=== PATIENT | male | born 1995 | race Caucasian/White ===

== ENCOUNTER 2019-12-02 13:11 | Observation (INO) ==
[2019-12-02] MEDS ORDERED: HYDROmorphone 2 MG/1 ML VIAL ONE ×2 (13:18→16:51)
[2019-12-02] MEDS ORDERED: ONDANSETRON 4 MG/2 ML VIAL ONE ×3 (13:18→16:51)
[2019-12-02] MEDS ORDERED: ceFAZolin 1,000 MG VIAL ONE ×2 (13:19→15:51)
[2019-12-02] MEDS ORDERED: ONDANSETRON 4 MG/2 ML VIAL IV STA (13:25)
[2019-12-02] MEDS ORDERED: HYDROmorphone 2 MG/1 ML VIAL IV STA (13:25)
[2019-12-02] MEDS ORDERED: DIPH/TET/ACEL PERT BOOSTER VACCINE 0.5 ML VIAL IM ONE ×2 (13:25→13:26)
[2019-12-02] MEDS ORDERED: LIDOCAINE 1%/EPI INJ 20 ML VIAL INFILTRAT STA (13:25)
[2019-12-02] MEDS ORDERED: SODIUM CHLORIDE 0.9% 1,000 ML IV STA ×2 (13:27→13:28)
[2019-12-02] MEDS ORDERED: KETOROLAC 15 MG/1 ML VIAL IV PRN (13:35)
[2019-12-02] MEDS ORDERED: BISACODYL 5 MG TABLET PO PRN (13:35)
[2019-12-02] MEDS ORDERED: ACETAMINOPHEN 325 MG TABLET PO PRN (13:35)
[2019-12-02] MEDS ORDERED: ONDANSETRON 4 MG/2 ML VIAL IV PRN ×2 (13:35→16:51)
[2019-12-02] MEDS ORDERED: ALBUTEROL/IPRATROPIUM 3 ML NEB RESP TX PRN (13:35)
[2019-12-02] MEDS ORDERED: HYDROmorphone 2 MG/1 ML VIAL IV PRN ×2 (13:35→16:51)
[2019-12-02 13:47] LABS: INR 1.1; Partial Thromboplastin Time 26.5 SECS (23.9-33.8)
[2019-12-02 13:55] LABS: Basophils # 0.1 10*3/uL (0.0-0.2); Basophils % 0.5 % (0.0-0.8); Eosinophils # 0.1 10*3/uL (0.0-0.87); Eosinophils % 0.9 % (0.00-10.9); Hematocrit 29.8 VOL% (42.0-52.0); Hemoglobin 8.1 GM/DL (14.0-18.0); Immature Granulocytes % 0.3 %; Immature Granulocytes Absolute 0.04 #; Lymphocytes # 2.7 10*3/uL (1.4-4.0); Lymphocytes % 21.8 % (21.2-54.2); Mean Corpuscular HGB Conc 27.2 GM/DL (32-36); Mean Corpuscular Volume 59.2 FL (87-102); Mean Platelet Volume 9.5 FL (9.6-12.0); Monocytes % 8.6 % (1.7-12.7); Neutrophils % 67.9 % (38.7-73.9); Platelet Count 526 T/CUMM (130-400); Red Blood Count 5.03 MC/CUMM (3.8-5.5); Red Cell Distribution Width 20.3 % (9.3-17.3); White Blood Count 12.4 T/CUMM (4-12)
[2019-12-02 13:57] LABS: Albumin 4.1 G/DL (3.4-5.0); Bilirubin,Total 0.4 MG/DL (0.2-1.0); Calcium 9.5 MG/DL (8.5-10.1); Osmolality,Calculated 276.7 MOS/KG (273-304); Total Protein 8.2 G/DL (6.4-8.3)
[2019-12-02 13:58] LABS: Anisocytosis 1+; Elliptocytes Few; Hypochromasia 1+; Platelet Estimate Increased; Polychromasia Few
[2019-12-02 14:59] LABS: Barbiturates Screen,Urine Negative (Negative); Benzodiazepines Screen,Urine Negative (Negative); Cannabinoid Screen,Urine Positive (Negative); Opiate Screen,Urine Positive (Negative); Phencyclidine Screen,Urine Negative (Negative)
[2019-12-02] MEDS ORDERED: LIDOCAINE 1% 20 ML VIAL ONE (15:32)
[2019-12-02] MEDS ORDERED: LIDOCAINE 1%/EPI INJ 20 ML VIAL ONE (15:56)
[2019-12-02] MEDS ORDERED: DEXAMETHASONE 4 MG/1 ML VIAL ONE (16:34)
[2019-12-02] MEDS ORDERED: SEVOFLURANE 1 UNIT/15 MINUTE INH ONE (16:34)
[2019-12-02] MEDS ORDERED: propofoL 200 MG/20 ML VIAL IV ONE (16:34)
[2019-12-02] MEDS ORDERED: LIDOCAINE 2% 5 ML VIAL ONE (16:34)
[2019-12-02] MEDS ORDERED: MIDAZOLAM 2 MG/2 ML VIAL ONE (16:34)
[2019-12-02] MEDS ORDERED: fentaNYL 100 MCG/2 ML VIAL ONE (16:34)
[2019-12-02] MEDS ORDERED: LACTATED RINGERS 1,000 ML IV ONE (16:35)
[2019-12-02] MEDS ORDERED: SUCCINYLCHOLINE 200 MG/10 ML VIAL ONE (16:35)
[2019-12-02] MEDS ORDERED: ROCURONIUM 100 MG/10 ML VIAL IV ONE (16:35)
[2019-12-02] MEDS: LACTATED RINGERS 1,000 ML IV SCH ×2 (17:31→22:08)
[2019-12-03] MEDS: LACTATED RINGERS 1,000 ML IV SCH (05:52)
[2019-12-03] MEDS ORDERED: PANTOPRAZOLE 40 MG TABLET PO SCH (09:00)
[2019-12-03 11:14] VITALS: BP 111/63
== END 2019-12-03 12:41 | disposition home or self-care (01) ==
LOC: N.ED 13:11 → N.EDINP 13:11 → N.3E 14:58
PROVIDERS: ADMIT Surgery; ATTEND Surgery